=== PATIENT | male | born 1930 | race African-American/Black ===

== ENCOUNTER 2019-01-16 09:53 | Emergency (ER) | payer OTHER ==
[~2019-01-16] VITALS: Ht 180.3 cm; Wt 70.0 kg
[2019-01-16] MEDS ORDERED: SODIUM CHLORIDE 0.9% 1,000 ML IV ONE (10:28)
[2019-01-16] MEDS ORDERED: ONDANSETRON HCL 4MG/2ML INJ IV ONE (10:45)
[2019-01-16 10:47] LABS: BASOPHILS % 1.2 % (0.0-2.0); HEMATOCRIT. 30.1 % (42.0-52.0); HEMOGLOBIN. 10.2 g/dL (14.0-18.0); LYMPHOCYTES % 12.1 % (20.0-50.0); MEAN CORPUSCULAR HEMOGLOBIN 34.3 pg (28.0-32.0); MEAN CORPUSCULAR VOLUME 100.8 fL (80.0-94.0); MEAN PLATELET VOLUME 9.1 fl (7.4-10.4); MONOCYTES % 1.2 % (2.0-8.0); NEUTROPHILS % 83.5 % (40.0-76.0); PLATELET 221 x1000/uL (130-400); RED BLOOD CELL COUNT 2.99 mill/uL (4.7-6.1)
[2019-01-16 10:52] LABS: INR 1.1; PARTIAL THROMBOPLASTIN TIME 29.4 sec (23.4-31.0); PROTHROMBIN TIME 11.3 sec (9.1-11.1)
[2019-01-16 10:53] LABS: CHLORIDE 106 mEq/L (98-107)
[2019-01-16] MEDS ORDERED: ASPIRIN 325MG EC TABLET PO ONE (11:45)
[2019-01-16 14:06] VITALS: BP 151/80
== END 2019-01-16 14:42 | disposition short-term general hospital (02) ==
LOC: ER 10:00
DX: G45.9 Transient cerebral ischemic attack, unspecified (principal); R55 Syncope and collapse; R41.82 Altered mental status, unspecified; R20.0 Anesthesia of skin; E11.9 Type 2 diabetes mellitus without complications; Z88.0 Allergy status to penicillin; Z95.0 Presence of cardiac pacemaker
CPT/HCPCS: 36415; 70450; 71045; 80053; 83880; 84484; 85025; 85610; 85730; 93005; 96361; 96374; 99285; J2405; J7030

== ENCOUNTER 2019-03-19 11:35 | Emergency (ER) | payer OTHER ==
[~2019-03-19] VITALS: Ht 180.3 cm; Wt 90.0 kg
[2019-03-19] MEDS ORDERED: SODIUM CHLORIDE 0.9% 1000ML BAG (SEPSIS BOLUS) IV ONE (12:15)
[2019-03-19 12:48] LABS: BASOPHILS % 0.6 % (0.0-2.0); EOSINOPHILS % 2.2 % (0.0-5.0); HEMATOCRIT. 27.4 % (42.0-52.0); HEMOGLOBIN. 9.5 g/dL (14.0-18.0); LYMPHOCYTES % 7.7 % (20.0-50.0); MEAN CORPUSCULAR HEMOGLOBIN 35.4 pg (28.0-32.0); MEAN CORPUSCULAR VOLUME 102.3 fL (80.0-94.0); MEAN PLATELET VOLUME 8.5 fl (7.4-10.4); MONOCYTES % 1.2 % (2.0-8.0); NEUTROPHILS % 88.3 % (40.0-76.0); PLATELET 219 x1000/uL (130-400); RED BLOOD CELL COUNT 2.68 mill/uL (4.7-6.1); RED CELL DISTRIBUTION WIDTH 15.2 % (11.6-14.6)
[2019-03-19 12:53] LABS: CHLORIDE 107 mEq/L (98-107)
[2019-03-19 12:56] LABS: INR 1.1; PROTHROMBIN TIME 11.4 sec (9.6-11.0)
[2019-03-19 18:00] VITALS: BP 181/80
== END 2019-03-19 18:27 | disposition short-term general hospital (02) ==
LOC: ER 11:35 → CANBEDREQ 18:51
DX: R55 Syncope and collapse (principal); I95.9 Hypotension, unspecified; I11.9 Hypertensive heart disease without heart failure; E11.9 Type 2 diabetes mellitus without complications; Z86.73 Personal history of transient ischemic attack (TIA), and cerebral infarction without residual deficits; Z88.0 Allergy status to penicillin; Z95.0 Presence of cardiac pacemaker
CPT/HCPCS: 36415; 71045; 80053; 83605; 83690; 84145; 84484; 85025; 85610; 87040; 93005; 96360; 96361; 99285; J7030